=== PATIENT | male | born 2000 | race African-American/Black ===

== ENCOUNTER 2021-01-10 15:44 | Emergency (ER) | payer OTHER ==
[~2021-01-10] VITALS: Ht 177.8 cm; Wt 91.0 kg
[2021-01-10] MEDS ORDERED: HYDROCODONE/ACETAMINOPHEN 5/325MG TABLET PO ONE (17:15)
[2021-01-10] MEDS ORDERED: BACITRACIN ZINC OINT UDPKT TOP ONE (17:15)
[2021-01-10] MEDS ORDERED: ONDANSETRON 4MG ODT PO ONE (17:15)
[2021-01-10] MEDS ORDERED: TETANUS, DIPHTHERIA, PERTUSSIS VAC/PF 0.5ML (>7YR OLD) IM ONE (17:15)
[2021-01-10 17:32] VITALS: BP 131/76
[2021-01-10] MEDS ORDERED: LIDOCAINE HCL 1% 20ML VIAL (Pyxis) INJ INFIL ONE (17:45)
[2021-01-10] MEDS ORDERED: IBUP-2029 MT (20:38)
[2021-01-10] MEDS ORDERED: BO1 TP (20:38)
[2021-01-10] MEDS ORDERED: CEPH250C2 MT (20:38)
== END 2021-01-10 20:48 | disposition home or self-care (01) ==
LOC: ER 15:44
DX: S61.210A Laceration without foreign body of right index finger without damage to nail, initial encounter (principal); S51.022A Laceration with foreign body of left elbow, initial encounter; V48.0XXA Car driver injured in noncollision transport accident in nontraffic accident, initial encounter; Y93.89 Activity, other specified; Y92.488 Other paved roadways as the place of occurrence of the external cause
CPT/HCPCS: 12001; 71045; 72170; 73080; 73130; 90471; 90715; 93005; 99284; J3490; Q0162; Z7610